=== PATIENT | female | born 1950 | race Caucasian/White ===

== ENCOUNTER → 2023-07-23 09:56 | Outpatient (REF) | payer BC, SELFPAY | LOC: HWWDC 09:56 | PROVIDERS: ATTENDING PHYSICIAN Physician Assistant Surgical; REFERRING PHYSICIAN Student in an Organized Health Care Education/Training Program | DX: Z12.31 Encounter for screening mammogram for malignant neoplasm of breast (principal) | CPT/HCPCS: 77063; 77067 ==